=== PATIENT | male | born 1990 | race Caucasian/White ===

== ENCOUNTER 2017-06-09 20:37 | Observation (INO) | payer OTHER ==
[~2017-06-09] VITALS: Ht 182.9 cm; Wt 117.9 kg
[2017-06-09 20:39] VITALS: BP 140/92
[2017-06-09 21:02] LABS: HEMATOCRIT 46.3 % (42.0-52.0); HEMOGLOBIN 15.8 gm/dL (14.0-18.0); MCH 29.4 pg (26.0-34.0); MCHC 34.2 g/dL (28.0-37.0); MCV 85.7 fL (80.0-100.0); MPV 8.1 fl. (7.2-11.1); NUCLEATED RBCS 0 /100WBC; PLATELET COUNT* 276 thou/uL (150-400); RBC 5.39 mil/uL (4.50-6.00); WBC 19.9 thou/uL (4.0-11.0)
[2017-06-09 21:09] LABS: ANION GAP 13 mmol/L (7-16); BUN 13 mg/dL (7-18); CALCIUM 8.8 mg/dL (8.5-10.1); CHLORIDE 104 mmol/L (98-107); CO2 25 mmol/L (21-32); CREATININE 1.2 mg/dL (0.6-1.3); GLUCOSE 98 mg/dL (70-99); POTASSIUM 3.4 mmol/L (3.5-5.1); SODIUM 142 mmol/L (136-145)
[2017-06-09 21:12] LABS: APTT 27.3 Seconds (25.0-31.3)
[2017-06-09 21:28] LABS: ALBUMIN 4.3 g/dL (3.4-5.0); ALKALINE PHOSPHATASE 55 U/L (46-116); CK-MB MASS < 0.5 ng/mL (<0.5-3.6); LIPASE 185 U/L (73-393); MAGNESIUM 1.9 mg/dL (1.8-2.4); NT-PRO BRAIN NAT PEPTIDE 37 pg/mL (<300); SGOT 32 U/L (15-37); SGPT 85 U/L (30-65); TOTAL BILIRUBIN 0.9 mg/dL (<0.1-1.0); TOTAL PROTEIN 7.6 g/dL (6.4-8.2); TROPONIN-I LEVEL <0.06 ng/mL (<0.06)
[2017-06-09 22:22] LABS: ABSOLUTE BASOPHILS 0.2 thou/uL (0.0-0.2); ABSOLUTE LYMPHOCYTES 1.2 thou/uL (0.8-5.3); ABSOLUTE MONOCYTES 0.8 thou/uL (0.0-1.2); ABSOLUTE NEUTROPHILS 17.7 thou/uL (1.6-8.1)
[2017-06-09 22:23] LABS: PLATELET ESTIMATE ADEQUATE
[2017-06-09 22:31] VITALS: BP 138/62
[2017-06-09 22:33] LABS: URINE BILIRUBIN NEGATIVE (Negative); URINE BLOOD TRACE (Negative); URINE CLARITY CLEAR; URINE COLOR YELLOW; URINE GLUCOSE-RANDOM NEGATIVE (Negative); URINE KETONES 2+ (Negative); URINE LEUKOCYTES-REFLEX NEGATIVE (Negative); URINE NITRITE-REFLEX NEGATIVE (Negative); URINE PROTEIN NEGATIVE (Negative); URINE UROBILINOGEN 0.2 E.U./dl (0.2-1.0)
[2017-06-09 23:00] VITALS: BP 132/73
[2017-06-10 04:11] VITALS: BP 122/80
[2017-06-10 08:00] VITALS: BP 108/68
[2017-06-10] MEDS ORDERED: LEVAQUIN 750 M750 MG PO (08:37)
[2017-06-10] MEDS ORDERED: VENTOLIN HFA 1818 GM INH (08:37)
--- NOTE | 2017-06-10 11:10 | EKG ---
[place] [address] ELECTROCARDIOGRAM REPORT Name: GARCIA BURGESS [id number] Admission: 06/09/17 Attend Phys: Melonie Tanner MD Discharge: Date of : 89 Report #: [id number] THIS REPORT FOR: //name// [facility] ED Test Date: 2017-06-09 Test Time: 20:39:33 Pat Name: GARCIA BURGESS Department: Room: Gender: Director Of Women'S Services: JANAE Robertson : 1990 Requested By: Yogi Dick Order Number: [id number] MD: Yuval Moreland Measurements Intervals [place] Rate: 121 P: 46 DC: 138 QRS: 13 QRSD: 95 T: 57 QT: 288 QTc: 409 Interpretive Statements Sinus tachycardia RSR' in V1 or V2, right VCD or RVH No previous ECG available for comparison Electronically Signed On 06-10-2017 11:10:30 CDT by Yuval Moreland [email or web address] <ELECTRONICALLY SIGNED> By: Yuval Moreland MD, [facility] 06/10/17 1110 38 38 Yuval Moreland MD, [facility] /EPI
[2017-06-10 11:30] VITALS: BP 134/81
[2017-06-10 11:57] VITALS: BP 108/68
== END 2017-06-10 15:13 | disposition home or self-care (01) ==
LOC: M.ERS 20:37 → M.TBA-ER 21:49 → M.2W 21:49
PROVIDERS: Family Medicine; ADMIT Internal Medicine
DX: J18.1 Lobar pneumonia, unspecified organism (principal); R65.10 Systemic inflammatory response syndrome (SIRS) of non-infectious origin without acute organ dysfunction; R56.9 Unspecified convulsions; F17.210 Nicotine dependence, cigarettes, uncomplicated; Z57.2 Occupational exposure to dust; Z72.89 Other problems related to lifestyle